=== PATIENT | male | born 1955 | race Caucasian/White ===

== ENCOUNTER → 2019-03-27 | Outpatient (REF) | payer OTHER ==
[2019-03-27 14:31] LABS: ALBUMIN 3.6 GM/DL (3.2-5.2); BILIRUBIN,TOTAL 0.3 MG/DL (0.2-1.0); CALCIUM LEVEL 9.1 MG/DL (8.8-10.2); CHOLESTEROL RISK RATIO 3.564 (<5); CREATININE FOR GFR 1.36 MG/DL (0.70-1.30); FREE T4 1.02 NG/DL (0.76-1.46); MAGNESIUM LEVEL 2.2 MG/DL (1.8-2.4); POTASSIUM SERUM 4.4 MEQ/L (3.5-5.1); THYROID STIMULATING HORMONE 3.99 uIU/ML (0.358-3.740); TOTAL PROTEIN 6.3 GM/DL (6.4-8.2); URIC ACID 6.5 MG/DL (3.5-7.2)
[2019-03-27 15:36] LABS: BASO # 0.1 10^3/uL (0.0-0.2); BASO % 0.9 % (0.0-1.0); EOS # 0.1 10^3/uL (0.0-0.50); EOS % 1.5 % (0.0-3.0); HEMATOCRIT 47.3 % (42.0-52.0); HEMOGLOBIN 14.8 g/dl (13.5-17.5); LYMPH # 1.7 10^3/uL (1.5-4.5); LYMPH % 31.7 % (24.0-44.0); MEAN CORPUSCULAR HEMOGLOBIN 28.3 pg (27.0-33.0); MEAN CORPUSCULAR HGB CONC 31.3 g/dl (32.0-36.5); MEAN CORPUSCULAR VOLUME 90.4 fl (80.0-96.0); MONO # 0.6 10^3/uL (0.0-0.8); MONO % 10.6 % (0.0-5.0); NEUTROPHILS % 54.8 % (36.0-66.0); PLATELET COUNT, AUTOMATED 239 10^3/uL (150-450); RED BLOOD COUNT 5.23 10^6/uL (4.30-6.10); WHITE BLOOD COUNT 5.5 10^3/uL (4.0-10.0)
[2019-03-28 14:07] LABS: PSA TOTAL 0.3 ng/mL (0.0-4.0)
== END ==
LOC: M LABDRAW1 11:53
PROVIDERS: ATTEND Family Medicine
DX: E11.9 Type 2 diabetes mellitus without complications (principal); I10 Essential (primary) hypertension; E78.5 Hyperlipidemia, unspecified; I48.91 Unspecified atrial fibrillation; E66.9 Obesity, unspecified; E87.6 Hypokalemia; N40.1 Benign prostatic hyperplasia with lower urinary tract symptoms

== ENCOUNTER → 2019-03-27 | Outpatient (REF) | payer OTHER ==
[2019-03-27 12:50] LABS: BASO % 0.8 % (0.0-1.0); EOS # 0.1 10^3/uL (0.0-0.50); EOS % 1.3 % (0.0-3.0); HEMATOCRIT 47.3 % (42.0-52.0); HEMOGLOBIN 14.8 g/dl (13.5-17.5); LYMPH # 1.7 10^3/uL (1.5-4.5); LYMPH % 32.3 % (24.0-44.0); MEAN CORPUSCULAR HGB CONC 31.3 g/dl (32.0-36.5); MEAN CORPUSCULAR VOLUME 89.6 fl (80.0-96.0); MONO # 0.6 10^3/uL (0.0-0.8); NEUTROPHILS # 2.9 10^3/uL (1.8-7.7); NEUTROPHILS % 54.4 % (36.0-66.0); PLATELET COUNT, AUTOMATED 244 10^3/uL (150-450); RED BLOOD COUNT 5.28 10^6/uL (4.30-6.10); WHITE BLOOD COUNT 5.3 10^3/uL (4.0-10.0)
[2019-03-27 13:57] LABS: BLOOD UREA NITROGEN 24 MG/DL (7-18); CARBON DIOXIDE LEVEL 30 MEQ/L (21-32); CHLORIDE LEVEL 107 MEQ/L (98-107); CREATININE FOR GFR 1.27 MG/DL (0.70-1.30); GLOMERULAR FILTRATION RATE > 60.0 (>49); GLUCOSE, FASTING 106 MG/DL (70-100); POTASSIUM SERUM 4.4 MEQ/L (3.5-5.1); SODIUM LEVEL 141 MEQ/L (136-145)
== END ==
LOC: M LABDRAW1 11:50
PROVIDERS: ATTEND Internal Medicine Cardiovascular Disease
DX: R07.9 Chest pain, unspecified (principal); R06.09 Other forms of dyspnea

== ENCOUNTER 2019-10-20 09:05 | Emergency (ER) | payer OTHER ==
[~2019-10-20] VITALS: Ht 177.8 cm; Wt 149.4 kg
[2019-10-20] MEDS ORDERED: ELIQ2.5T (09:12)
[2019-10-20] MEDS ORDERED: BRIL90TA (09:12)
[2019-10-20 09:43] LABS: BASO # 0.1 10^3/uL (0.0-0.2); BASO % 0.5 % (0.0-1.0); EOS # 0.2 10^3/uL (0.0-0.5); EOS % 2.3 % (0.0-3.0); HEMATOCRIT 46.2 % (42.0-52.0); HEMOGLOBIN 14.9 g/dl (13.5-17.5); LYMPH # 1.9 10^3/uL (1.5-5.0); MEAN CORPUSCULAR HEMOGLOBIN 27.1 pg (27.0-33.0); MEAN CORPUSCULAR HGB CONC 32.3 g/dl (32.0-36.5); MONO # 0.9 10^3/uL (0.0-0.8); MONO % 8.9 % (0.0-5.0); NEUTROPHILS # 6.9 10^3/uL (1.5-8.5); NEUTROPHILS % 68.2 % (36.0-66.0); PLATELET COUNT, AUTOMATED 346 10^3/uL (150-450); WHITE BLOOD COUNT 10.2 10^3/uL (4.0-10.0)
[2019-10-20 09:55] LABS: INR 1.2; PROTHROMBIN TIME 14.9 SECONDS (11.8-14.0)
[2019-10-20 09:56] LABS: PARTIAL THROMBOPLASTIN TIME 33.6 SECONDS (25.0-38.4)
[2019-10-20] MEDS ORDERED: HYDR-3363 PO (10:10)
[2019-10-20] MEDS ORDERED: FLEC1TAB PO (10:10)
[2019-10-20] MEDS ORDERED: SIMB1SUS OP (10:10)
[2019-10-20] MEDS ORDERED: FOLI400T PO (10:10)
[2019-10-20] MEDS ORDERED: ATOR1TAB19 PO (10:10)
[2019-10-20] MEDS ORDERED: METO1TAB87 PO (10:10)
[2019-10-20] MEDS ORDERED: PANT40TA3 PO (10:10)
[2019-10-20] MEDS ORDERED: VERA240T3 PO (10:10)
[2019-10-20] MEDS ORDERED: XALA0.007 OP (10:10)
[2019-10-20] MEDS ORDERED: FURO40TA2 PO (10:10)
[2019-10-20] MEDS ORDERED: ALLO100T PO (10:10)
[2019-10-20] MEDS ORDERED: TUDO1AER3 IN (10:10)
[2019-10-20] MEDS ORDERED: MONT10TA4 PO (10:10)
[2019-10-20] MEDS ORDERED: B-12100021 PO (10:10)
[2019-10-20] MEDS ORDERED: SYMB16INH INH (10:10)
[2019-10-20] MEDS ORDERED: RANO500T7 PO (10:10)
[2019-10-20 10:15] LABS: CALCIUM LEVEL 8.9 MG/DL (8.8-10.2); CREATININE FOR GFR 1.42 MG/DL (0.70-1.30); GLOMERULAR FILTRATION RATE 53.1 (>49); POTASSIUM SERUM 4.6 MEQ/L (3.5-5.1)
[2019-10-20] MEDS ORDERED: DERMABOND TOPICAL SKIN ADHESIVE TOP ONE (10:15)
[2019-10-20 10:37] VITALS: BP 107/70
== END 2019-10-20 10:39 | disposition home or self-care (01) ==
LOC: M ED 09:05
DX: S31.31XA Laceration without foreign body of scrotum and testes, initial encounter (principal); X58.XXXA Exposure to other specified factors, initial encounter; Y92.9 Unspecified place or not applicable; I11.9 Hypertensive heart disease without heart failure; J45.909 Unspecified asthma, uncomplicated; J44.1 Chronic obstructive pulmonary disease with (acute) exacerbation; Z88.8 Allergy status to other drugs, medicaments and biological substances; Z79.01 Long term (current) use of anticoagulants; Z79.51 Long term (current) use of inhaled steroids; Z79.899 Other long term (current) drug therapy

== ENCOUNTER → 2022-09-13 | Outpatient (REF) | payer MEDICARE, OTHER ==
[~2022-09-13] MED LIST: ALLO100T PO; ATOR1TAB19 PO; B-12100021 PO; BRIL90TA; ELIQ2.5T; FLEC1TAB PO; FLUT1BLS5; FOLI400T13 PO; FURO40TA2 PO; HYDR-3363 PO; METO1TAB87 PO; MONT10TA97 PO; PANT20TA6 PO; PANT40TA29 PO; POTA1TAB23; RANO10002 PO; RANO500T7 PO; SIMB1SUS OP; SYMB16INH INH; TORS20TA2; TUDO1AER2 IN; VERA240T64 PO; XALA0.007 OP
== END ==
LOC: M LAB REF 18:16
PROVIDERS: ATTEND Physician Assistant
DX: R30.0 Dysuria (principal)